=== PATIENT | male | born 1970 | race Caucasian/White ===

== ENCOUNTER 2021-06-28 20:37 | Emergency (ER) | payer OTHER ==
[~2021-06-28 20:37] MED LIST: ALTACE10 MG PO; CHOLESTEROL PILL PO; JARDIANCE25 MG PO; METFORMIN HCL500 MG PO
[2021-06-28] MEDS ORDERED: ONDANSETRON ODT4 MG PO (22:00)
[2021-06-28] MEDS ORDERED: PERCOCET 5-3251 EACH PO (22:00)
[2021-06-28] MEDS ORDERED: NAPROXEN500 MG PO (22:00)
== END 2021-06-28 22:31 | disposition home or self-care (01) ==
LOC: FER 20:37
DX: S06.0X0A Concussion without loss of consciousness, initial encounter (principal); M54.2 Cervicalgia; I10 Essential (primary) hypertension; E11.9 Type 2 diabetes mellitus without complications; F17.210 Nicotine dependence, cigarettes, uncomplicated; Z79.84 Long term (current) use of oral hypoglycemic drugs; Z79.899 Other long term (current) drug therapy; W17.89XA Other fall from one level to another, initial encounter; Y92.009 Unspecified place in unspecified non-institutional (private) residence as the place of occurrence of the external cause
CPT/HCPCS: 70450; 72125; 96372; J1170; J2405